=== PATIENT | female | born 1975 | race Caucasian/White ===

== ENCOUNTER 2022-07-02 15:26 | Outpatient (CLI) | payer OTHER, SELFPAY ==
--- NOTE | 2022-07-02 15:40 | CRLHL7_ITS ---
For Patients: As a result of the Century Cures Act, medical imaging exams and procedure reports are released immediately into your electronic medical record. You may view this report before your referring provider. If you have questions, please contact your health care provider. BILATERAL MAMMOGRAM WITH COMPUTER-AIDED DETECTION AND TOMOSYNTHESIS 07/02/2022 TECHNIQUE: CC and MLO views were obtained. These mammographic images have been obtained using full-field digital technique. These mammographic images were interpreted with the benefit of computer-aided detection. Breast Tomosynthesis was used in this interpretation. COMPARISON FILM: 04/24/21, 04/22/20, 02/23/19. FINDINGS: The breasts are heterogeneously dense, which may obscure small masses IMPRESSION: There is no radiographic evidence for malignancy. ASSESSMENT: BI-RADS Category 1: Negative RECOMMENDATION: Routine screening mammogram in 1 year. A lay language report of this examination will be provided to the patient. Rubio Sunshine M.D. Diagnostic Radiologist [email or web address] GENE/carline / be/Dictated by: Rubio Sunshine MD @ 07/03/2022 9:15:00 AM (Electronically Signed)
== END 2022-07-02 15:27 | disposition home or self-care (01) ==
LOC: MAMMO 15:30
PROVIDERS: PCP Physician Assistant Medical; Visit Provider Physician Assistant
DX: Z12.31 Encounter for screening mammogram for malignant neoplasm of breast (principal)
CPT/HCPCS: 77063; 77067

== ENCOUNTER 2022-09-04 08:17 | Outpatient (CLI) | payer OTHER, SELFPAY | END 2022-09-04 08:18 | disposition home or self-care (01) | PROVIDERS: PCP Physician Assistant Medical; Visit Provider Physician Assistant | DX: R23.2 Flushing (principal); N95.1 Menopausal and female climacteric states | CPT/HCPCS: 83001; 84443 ==

== ENCOUNTER 2022-09-21 10:27 | Outpatient (CLI) | payer OTHER, SELFPAY ==
--- NOTE | 2022-09-21 10:45 | CRLHL7_ITS ---
For Patients: As a result of the Century Cures Act, medical imaging exams and procedure reports are released immediately into your electronic medical record. You may view this report before your referring provider. If you have questions, please contact your health care provider. CLINICAL HISTORY: Left lower quadrant pain TECHNIQUE: 2D viera scale and color Doppler images were acquired of the pelvis using a transvaginal approach. FINDINGS: On transvaginal imaging, the myometrium has a normal uniform echotexture. The endometrial lining measures 3 mm in thickness. The left ovary measures 1.9 x 1.0 x 1.7 cm in size and the right ovary measures 2.0 x 1.1 x 1.4 cm. The ovaries demonstrate normal arterial and venous blood flow on color Doppler analysis. There are no suspicious fluid collections within the cul-de-sac. IMPRESSION: No abnormalities of the uterus or ovaries identified. Dictated by Rubio Sunshine MD @ 09/21/2022 12:29:29 PM (Electronically Signed)
== END 2022-09-21 10:28 | disposition home or self-care (01) ==
LOC: US 10:29
PROVIDERS: PCP Physician Assistant Medical; Visit Provider Emergency Medicine
DX: R10.32 Left lower quadrant pain (principal)
CPT/HCPCS: 76830

== ENCOUNTER 2023-03-26 08:43 | Outpatient (CLI) | payer OTHER, SELFPAY | END 2023-03-26 08:44 | disposition home or self-care (01) | LOC: NFLDREF 08:43 | PROVIDERS: PCP Physician Assistant Medical; Visit Provider Physician Assistant | DX: Z01.419 Encounter for gynecological examination (general) (routine) without abnormal findings (principal); Z13.6 Encounter for screening for cardiovascular disorders; Z13.1 Encounter for screening for diabetes mellitus | CPT/HCPCS: 80061; 82947 ==

== ENCOUNTER 2023-07-05 11:05 | Outpatient (CLI) | payer OTHER, SELFPAY ==
--- NOTE | 2023-07-05 11:30 | CRLHL7_ITS ---
For Patients: As a result of the Century Cures Act, medical imaging exams and procedure reports are released immediately into your electronic medical record. You may view this report before your referring provider. If you have questions, please contact your health care provider. BILATERAL SCREENING MAMMOGRAM WITH COMPUTER-AIDED DETECTION AND TOMOSYNTHESIS TECHNIQUE: CC and MLO views were obtained. These mammographic images have been obtained using full-field digital technique. These mammographic images were interpreted with the benefit of computer-aided detection. Breast Tomosynthesis was used in this interpretation. COMPARISON FILM: 07/02/22, 04/24/21, 04/22/20. FINDINGS: The breasts are heterogeneously dense, which may obscure small masses IMPRESSION: There is no radiographic evidence for malignancy. ASSESSMENT: BI-RADS Category 1: Negative RECOMMENDATION: Routine screening mammogram in 1 year. A lay language report of this examination will be provided to the patient. Rubio Sunshine M.D. Diagnostic Radiologist [email or web address] DSM/bhe be/Dictated by: Rubio Sunshine MD @ 07/05/2023 1:37:00 PM (Electronically Signed)
== END 2023-07-05 11:06 | disposition home or self-care (01) ==
LOC: MAMMO 11:06
PROVIDERS: PCP Physician Assistant Medical; Visit Provider Physician Assistant
DX: Z12.31 Encounter for screening mammogram for malignant neoplasm of breast (principal); R92.2 Inconclusive mammogram
CPT/HCPCS: 77063; 77067

== ENCOUNTER 2023-11-03 10:29 | Outpatient (CLI) | payer OTHER, SELFPAY ==
--- NOTE | 2023-11-03 10:45 | CRLHL7_ITS ---
For Patients: As a result of the Cures Act, medical imaging exams and procedure reports are released immediately into your electronic medical record. You may view this report before your referring provider. If you have questions, please contact your health care provider. DIGITAL DIAGNOSTIC RIGHT MAMMOGRAM USING TOMOSYNTHESIS AND COMPUTER-AIDED DETECTION RIGHT BREAST ULTRASOUND CLINICAL HISTORY: RIGHT breast pain. COMPARISON: 07/05/2023, 07/02/2022, 04/24/2021. TECHNIQUE: Digital RIGHT mammogram in two projections. Tomosynthesis and CAD. Real-time ultrasound imaging of RIGHT breast with imaging documentation. BREAST COMPOSITION: The breasts are heterogeneously dense, which may obscure small masses. FINDINGS: 3D CC/MLO RIGHT breast mammogram images submitted. No suspicious masses or architectural distortion. No suspicious calcifications. No adenopathy. Targeted RIGHT breast ultrasound performed in the area of concern 12 o`clock-4 o`clock 4 cm from the nipple. Normal fibroglandular tissue is present. No fibrocystic change or mass. IMPRESSION: No suspicious findings. No evidence of malignancy. RECOMMENDATIONS: Annual BILATERAL screening mammography. Results and recommendations discussed with the patient. BI-RADS Category 2: Benign A lay language report of this examination will be provided to the patient. Dictated by Rubio Sunshine MD @ 11/03/2023 12:50:44 PM nimesh/Dictated by: Rubio Sunshine MD @ 11/03/2023 12:50:00 PM (Electronically Signed)
--- NOTE | 2023-11-03 11:15 | CRLHL7_ITS ---
For Patients: As a result of the Cures Act, medical imaging exams and procedure reports are released immediately into your electronic medical record. You may view this report before your referring provider. If you have questions, please contact your health care provider. PLEASE SEE DIGITAL DIAGNOSTIC RIGHT MAMMOGRAM PERFORMED SAME DAY CRL:ana perez/Dictated by: Rubio Sunshine MD @ 11/03/2023 12:50:00 PM (Electronically Signed)
== END 2023-11-03 10:30 | disposition home or self-care (01) ==
LOC: MAMMO 10:30
PROVIDERS: PCP Physician Assistant Medical; Visit Provider Advanced Practice Midwife
DX: N64.4 Mastodynia (principal)
CPT/HCPCS: 76642; 77065; G0279

== ENCOUNTER 2024-03-28 12:33 | Outpatient (CLI) | payer OTHER, SELFPAY | END 2024-03-28 12:34 | disposition home or self-care (01) | LOC: NFLDREF 12:34 | PROVIDERS: PCP Physician Assistant Medical; Visit Provider Physician Assistant | DX: E78.5 Hyperlipidemia, unspecified (principal); Z13.1 Encounter for screening for diabetes mellitus | CPT/HCPCS: 80061; 82947 ==

== ENCOUNTER 2024-06-29 09:00 | Outpatient (CLI) | payer OTHER, SELFPAY ==
--- NOTE | 2024-06-29 09:15 | CRLHL7_ITS ---
For Patients: As a result of the Century Cures Act, medical imaging exams and procedure reports are released immediately into your electronic medical record. You may view this report before your referring provider. If you have questions, please contact your health care provider. BILATERAL SCREENING MAMMOGRAM WITH COMPUTER-AIDED DETECTION AND TOMOSYNTHESIS TECHNIQUE: CC and MLO views were obtained. These mammographic images have been obtained using full-field digital technique. These mammographic images were interpreted with the benefit of computer-aided detection. Breast Tomosynthesis was used in this interpretation. COMPARISON FILM: 07/05/23, 07/02/22, 04/24/21. FINDINGS: The breasts are heterogeneously dense, which may obscure small masses IMPRESSION: There is no radiographic evidence for malignancy. ASSESSMENT: BI-RADS Category 1: Negative RECOMMENDATION: Routine screening mammogram in 1 year. A lay language report of this examination will be provided to the patient. Rubio Sunshine M.D. Diagnostic Radiologist [email or web address] YONY/Dictated by: Rubio Sunshine MD @ 06/29/2024 12:39:00 PM (Electronically Signed)
== END 2024-06-29 09:01 | disposition home or self-care (01) ==
LOC: MAMMO 09:01
PROVIDERS: PCP Physician Assistant Medical; Visit Provider Physician Assistant
DX: Z12.31 Encounter for screening mammogram for malignant neoplasm of breast (principal); R92.2 Inconclusive mammogram
CPT/HCPCS: 77063; 77067

== ENCOUNTER 2024-09-24 13:13 | Emergency (ER) | payer OTHER, SELFPAY ==
[2024-09-24] VITALS (16 sets, daily range): BP systolic 130–183; BP diastolic 95–132; PULSE 59–75; RESP 16–18; TEMP 36–36.2; O2SAT 97–100; BMI 31.8
[2024-09-24] MEDS: KETOROLAC 15 MG/ML inj IVP (13:55)
[2024-09-24 13:57] LABS: Basophils Absolute Auto 0.03 K/uL (0.00-0.30); Basophils Percent Auto 0.4 % (0.0-3.0); Eosinophils Absolute Auto 0.07 K/uL (0.00-0.50); Eosinophils Percent Auto 0.9 % (0.0-7.0); Hematocrit 40.8 % (33.0-51.0); Hemoglobin* 13.3 gm/dL (12.0-16.0); Immature Granulocytes Abs Auto 0.01 K/uL (0.00-0.30); Immature Granulocytes Pct Auto 0.1 %; Lymphocytes Absolute Auto 2.44 K/uL (0.90-2.90); Lymphocytes Percent Auto 30.3 % (20-44); Mean Corpuscular HGB Conc 33 gm/dL (32-36); Mean Corpuscular Hemoglobin 26 pg (26-34); Mean Corpuscular Volume 80 fL (80-100); Monocytes Percent Auto 7.1 % (0.0-11.0); Neutrophils Absolute Auto 4.94 K/uL (1.7-7.0); Neutrophils Percent Auto 61.2 % (42.0-72.0); Platelet Count* 262 K/uL (140-440); RDW Coefficient of Variation % 13.3 % (11.5-15.5); Red Blood Count 5.12 m/uL (4.00-5.20); White Blood Count* 8.06 K/uL (4.50-11.00)
[2024-09-24 14:00] LABS: Slide Review Reflex No
[2024-09-24 14:13] LABS: Chloride* 104 mmol/L (96-114); Potassium* 3.6 mmol/L (3.6-5.1); Sodium* 137 mmol/L (135-149)
[2024-09-24 14:15] LABS: Creatinine* 0.7 mg/dL (0.5-1.5); Est. Creatinine Clearance* 83.95; Estimated Glomerular Filt Rate 106 ml/min
[2024-09-24 14:16] LABS: Anion Gap 8 mEq/L (7-15); Blood Urea Nitrogen* 14 mg/dL (5-24); Carbon Dioxide* 25 mmol/L (20-32); Glucose* 95 mg/dL (60-115)
[2024-09-24 14:17] LABS: Calcium* 9.2 mg/dL (8.4-10.6)
[2024-09-24 14:19] LABS: C Reactive Protein* 0.9 mg/dL (0.5-1.0)
[2024-09-24 14:22] LABS: D Dimer Quantitative* 0.37 ug/ml (0.00-0.50)
--- NOTE | 2024-09-24 14:29 | CRLHL7_ITS ---
For Patients: As a result of the Cures Act, medical imaging exams and procedure reports are released immediately into your electronic medical record. You may view this report before your referring provider. If you have questions, please contact your health care provider. INDICATION: Left lateral chest pain TECHNIQUE: Chest radiograph 2 views COMPARISON: 08/31/2023 FINDINGS: Mediastinum: The mediastinum is normal in appearance. The cardiac silhouette is at upper limits of normal in size. Lung: Both lungs are unremarkable in appearance. No sign of pleural effusion seen. No pneumothorax is identified. Bone and Soft tissue: Unremarkable for age. IMPRESSION: 1. No acute cardiopulmonary disease is seen. Dictated by Juan José Jacome MD @ 09/24/2024 2:49:20 PM Dictated by: Juan José Jacome MD @ 09/24/2024 14:49:21 (Electronically Signed)
--- NOTE | 2024-09-24 14:29 | ED_ITS ---
HPI - General Adult General Date Seen: 09/24/24 Chief complaint: Chest Pain Stated complaint: L side chest pain Time Seen by Provider: 09/24/24 13:31 Source: patient, RN notes reviewed and old records reviewed Mode of arrival: ambulatory Limitations: no limitations History of Present Illness HPI narrative: Patient is a pleasant 48-year-old woman, generally pretty healthy here for evaluation of left lateral chest pain which she says started around 1045 this morning while she was driving. She describes a sharp, squeezing type pain which is localized underneath her left armpit. She says the 1st time it happened just was half a 2nd, but it has lasted as long as 30 seconds to a minute. It is happening 10-15 times an hour since then. Not associated with shortness of breath, she notes that the pain is pleuritic when it is there but when it is not present she has no pleuritic pain. She has not had any fever, cough, lower extremity swelling or pain, recent travel or immobility. She is on hormone replacement therapy due to menopausal status. She has no history of DVT or PE, no cardiac history. She does not smoke. Here today with her . Was seen in urgent care and reports that she had an EKG there and they said it looked normal, but did not have any other testing. They recommended that she come to the ER. Related Data Previous Rx's ?Medication ?Instructions ?Recorded citalopram 40 mg tablet See Rx Instructions .Route 03/28/24 .COMPLEX #90 tabs estradiol 0.0375 mg/24 hr 1 patch transdermal 2XW #24 ea 03/28/24 semiweekly transdermal patch progesterone micronized 100 mg 100 mg PO DAILY #90 caps 03/28/24 capsule Allergies Allergy/AdvReac Type Severity Reaction Status Date / Time No Known Drug Allergies Allergy Verified 04/20/24 15:17 Review of Systems Status of ROS: Reports: 10 or more systems reviewed and unremarkable except as noted in History and below [facility] Medical History Community acquired pneumonia ?J18.9 - Pneumonia, unspecified organism (ICD-10) History of tobacco use (12/25/10) ?Z87.891 - Personal history of nicotine dependence (ICD-10) Cyst of paranasal sinus ?J34.1 - Cyst and mucocele of nose and nasal sinus (ICD-10) Depression with anxiety ?F41.8 - Other specified anxiety disorders (ICD-10) Surgical History History of foot surgery ?Z98.890 - Other specified postprocedural states (ICD-10) History of sinus surgery ?Z98.890 - Other specified postprocedural states (ICD-10) History of endometrial ablation ?Z98.890 - Other specified postprocedural states (ICD-10) Family History Paternal Grandmother Stroke Son Depression Maternal Grandfather Alcohol dependence Father Parkinsons Sister Multiple sclerosis Social History Narrative: Retired, , nonsmoker. Rare alcohol use. Problems where you live: no known problems In the past 12 months, utilities in danger of being shut off: no In past 12 months, lack of transportation kept you from medical appts, meetings, work, or getting things needed for daily living: no In the past 12 mos, have been you worried that your food would run out before you had money to buy more?: never true In the past 12 mos, the food you bought just didn't last and you didn't have money to buy more?: never true Smoking Status: Former smoker How often do you have a drink containing alcohol: 2-3 times a week AUDIT-C Alcohol total score: 3 Non-prescribed substance use: denies use How often does anyone, including family, friends and others, physically hurt you : never How often does anyone, including family, friends and others, insult or talk down to you: never How often does anyone, including family, friends and others, threaten you with harm: never How often does anyone, including family, friends and others, scream or curse at you: never Little interest or pleasure in doing things: not at all Feeling down, depressed, or hopeless: not at all Exam Narrative: Exam Narrative: Vital signs as noted above. In general, an alert, well-appearing patient. Head: Normocephalic, atraumatic. Eyes: Pupils are equal reactive. Extraocular movements are full. Conjunctivae are normal. ENT: Mucous membranes are moist. Throat is normal. Neck: Supple without lymphadenopathy. Heart: Regular rate and rhythm. No murmur or rub. Lungs: Clear bilaterally. No increased work of breathing, crackles or wheezes. Chest wall is normal without rash or erythema. Abdomen: Soft and nontender. No organomegaly. Extremities: Well perfused. No edema. No calf tenderness. Pulses intact. Neurologic: Patient is alert and oriented to person and place. Speech is fluent. Face is symmetric. Moves all extremities equally. Affect: Normal. Skin: Warm and dry. Well perfused. Const: Vital Signs, click to edit/add: Vital Signs - 24 hr 09/24/24 13:16 09/24/24 13:32 09/24/24 13:34 Temperature 97.1 F L Pulse Rate 64 75 Pulse Rate [Pulse Oximeter] 75 Respiratory Rate 16 Blood Pressure 151/104 H Blood Pressure [Ri ght Upper Arm] 183/132 H Pulse Oximetry 97 99 [facility] 09/24/24 13:41 09/24/24 13:41 09/24/24 13:45 Temperature Pulse Rate 63 71 Pulse Rate [Pulse Oximeter] Respiratory Rate Blood Pressure 159/106 H Blood Pressure [Ri ght Upper Arm] Pulse Oximetry 100 99 97 Oxygen Delivery Me thod 09/24/24 14:00 09/24/24 14:02 09/24/24 14:03 Temperature Pulse Rate 60 60 64 Pulse Rate [Pulse Oximeter] Respiratory Rate Blood Pressure Blood Pressure [Ri ght Upper Arm] Pulse Oximetry 98 98 98 Oxygen Delivery Ak thod 09/24/24 14:15 09/24/24 14:18 09/24/24 14:19 Temperature Pulse Rate 63 64 62 Pulse Rate [Pulse Oximeter] Respiratory Rate Blood Pressure 146/95 H Blood Pressure [Ri ght Upper Arm] Pulse Oximetry 97 98 99 Oxygen Delivery Me thod 09/24/24 14:21 09/24/24 14:30 09/24/24 14:41 Temperature Pulse Rate 63 60 59 L Pulse Rate [Pulse Oximeter] Respiratory Rate Blood Pressure 130/99 H 143/96 H Blood Pressure [Ri ght Upper Arm] Pulse Oximetry 98 99 99 Oxygen Delivery Ak thod 09/24/24 14:45 09/24/24 16:20 Temperature 96.8 F L Pulse Rate 60 62 Pulse Rate [Pulse Oximeter] Respiratory Rate 18 Blood Pressure 154/97 H Blood Pressure [Ri ght Upper Arm] Pulse Oximetry 98 99 Oxygen Delivery Me thod Course Course ED Course: Patient presents with atypical chest pain, overall my suspicion for acute coronary syndrome is quite low, symptoms are atypical, she is relatively young without identified risk factors. EKG done here shows a normal sinus rhythm, ventricular rate of 62. T-waves are somewhat flattened throughout, no acute ST segment changes. A troponin is 0, will repeat a 2nd troponin to be thorough, but I do not think this represents acute coronary syndrome. I did check a D- dimer, this was normal at 0.37. Other labs showed normal white blood cell count and hemoglobin, metabolic panel is within normal limits and CRP is 0.9. I do not see any evidence of rash now but I did talk to her about possible shingles. Symptoms could be muscular/chest wall as well. Will do a chest x-ray given the normal D-dimer to rule out pneumothorax, pleural effusion or other surprises. Otherwise, I would recommend a trial of anti inflammatories, primary care follow-up. Discussed with patient, she is comfortable with discharge. Will do a 2 hour troponin and if negative I think it is reasonable let her go home. She feels im proved after Toradol, I would recommend a trial of ibuprofen, 3 times daily with food for a few days. Discussed that etiology of her symptoms is unclear at this time, but there is no evidence of an acute life-threatening process. Repeat trop 0. Vital Signs Vital signs: Initial Vital Signs Temperature 97.1 F L 09/24/24 13:16 Temperature Source Temporal Artery Scan 09/24/24 13:16 Pulse Rate 75 09/24/24 13:16 Respiratory Rate 16 09/24/24 13:16 Blood Pressure 183/132 H 09/24/24 13:16 Blood Pressure Mean 149 H 09/24/24 13:16 Blood Pressure Position Sitting 09/24/24 13:16 Pulse Oximetry 97 09/24/24 13:16 Oxygen Delivery Method Room Air 09/24/24 13:16 Vital Signs Temperature 97.1 F L 09/24/24 13:16 Pulse Rate 75 09/24/24 13:16 Respiratory Rate 16 09/24/24 13:16 Blood Pressure 183/132 H 09/24/24 13:16 Pulse Oximetry 97 09/24/24 13:16 Oxygen Delivery Method Room Air 09/24/24 13:16 Temperature 96.8 F L 09/24/24 16:20 Pulse Rate 62 09/24/24 16:20 Respiratory Rate 18 09/24/24 16:20 Blood Pressure 154/97 H 09/24/24 16:20 Pulse Oximetry 99 09/24/24 16:20 Oxygen Delivery Method Room Air 09/24/24 13:16 Medications Administered Medications: Discontinued Medications Generic Name Dose Route Start Last Admin Trade Name Jeffreyq PRN Reason Stop Dose Admin Ketorolac Tromethamine 15 mg 09/24/24 13:41 09/24/24 13:55 Ketorolac 15 Mg/Ml Inj IVP 09/24/24 13:42 15 mg ONCE ONE Administration Medical Decision Making Lab Data Labs: Lab Results 09/24/24 09/24/24 09/24/24 Range/Units 13:25 13:41 15:40 WBC 8.06 (4.50-11.00) K/uL RBC 5.12 (4.00-5.20) m/uL Hgb 13.3 (12.0-16.0) gm/dL Hct 40.8 (33.0-51.0) % MCV 80 (80-100) fL MCH 26 (26-34) pg MCHC 33 (32-36) gm/dL RDW Coeff of Agnieszka 13.3 (11.5-15.5) % Plt Count 262 (140-440) K/uL Neut % (Auto) 61.2 (42.0-72.0) % Lymph % (Auto) 30.3 (20-44) % Duval % (Auto) 7.1 (0.0-11.0) % Eos % (Auto) 0.9 (0.0-7.0) % Baso % (Auto) 0.4 (0.0-3.0) % Neut # (Auto) 4.94 (1.7-7.0) K/uL Lymph # (Auto) 2.44 (0.90-2.90) K/uL Duval # (Auto) 0.60 (0.00-0.90) K/UL Eos # (Auto) 0.07 (0.00-0.50) K/uL Baso # (Auto) 0.03 (0.00-0.30) K/uL Abs Immat Gran (auto) 0.01 (0.00-0.30) K/uL Imm/Tot Granulo (auto) 0.1 % D-Dimer Quant (PE/DVT) 0.37 (0.00-0.50) ug/ml Sodium 137 (135-149) mmol/L Potassium 3.6 (3.6-5.1) mmol/L Chloride 104 (96-114) mmol/L Carbon Dioxide 25 (20-32) mmol/L Anion Gap 8 (7-15) mEq/L BUN 14 (5-24) mg/dL Creatinine 0.7 (0.5-1.5) mg/dL Estimated Creat Clear 83.95 Estimated GFR 106 ml/min Glucose 95 (60-115) mg/dL Calcium 9.2 (8.4-10.6) mg/dL C-Reactive Protein 0.9 (0.5-1.0) mg/dL POC Troponin I 0.00 L 0.00 L (0.01-0.04) ng/ml Discharge Plan Discharge Clinical Impression: Atypical chest pain Patient Disposition: Home, Self-Care Condition: Improved Instructions: Chest Pain (DC) Additional Instructions: I would recommend a trial of ibuprofen, 400 mg 3 times daily with food for few days. If any time you have severe uncontrolled pain, new symptoms such as fever, shortness of breath, fainting etcetera return for re-evaluation. Otherwise, primary care follow-up in the next week for recheck. Prescriptions: No Action estradiol 0.0375 mg/24 hr patch semiweekly 1 patch transdermal 2XW Qty: 24 3RF Rx Instructions: APPLY TWICE WEEKLY progesterone micronized 100 mg capsule 100 mg PO DAILY Qty: 90 3RF citalopram 40 mg tablet See Rx Instructions .ROUTE .COMPLEX Qty: 90 3RF Dose Instruction: TAKE 1 TABLET BY MOUTH ONCE DAILY Rx Instructions: TAKE 1 TABLET BY MOUTH ONCE DAILY Follow Up/Referrals: Michelle Becker PA-C [Primary Care Provider] - Stand Alone Forms: MyHealth Info Instructions
== END 2024-09-24 16:20 | disposition home or self-care (01) ==
PROVIDERS: Emergency Provider Emergency Medicine; PCP Physician Assistant Medical
DX: R07.9 Chest pain, unspecified (principal)
CPT/HCPCS: 36415; 71046; 80048; 84484; 85025; 85379; 86140; 93005; 94761; 96374; 99284; J1885

== ENCOUNTER 2024-10-10 10:40 | Outpatient (CLI) | payer OTHER, SELFPAY ==
[2024-10-10 11:17] VITALS: BP 130/82; PULSE 94; RESP 16
--- NOTE | 2024-10-10 11:27 | W.PM.STED ---
Stress Test Note Date Date Seen: 10/10/24 Date of test: 10/10/24 Providers Primary care provider: Michelle Becker Stress test physician: Himanshu Miller Stress Test Note Stress test ordered: Exercise Stress Test Indication for test: Chest pain Stress test medicine: None Results discussion: Patient is a very nice 48-year-old female presents for the above test, after discussion the risks benefits and possible side effects including non diagnosis are discussed with her she would like to proceed. Pretest EKG shows normal sinus rhythm with a ventricular rate of 63 and a blood pressure 122/88. Standard Edgar protocol is employed over a time course of 10 minutes 23 seconds, she achieved a metabolic equivalent of 12.1 Mets with a maximum heart rate of 165 which is 113% of the maximum. Maximum blood pressure was 170/92. During this test there is some very mild ST wave changes nondiagnostic of ischemia noted. She had no noted anginal equivalent symptoms. And recovered normally. Conditioning was felt to be excellent. Impression: Negative electrographic portion of stress test. Follow up suggested: Patient will be discharged from this facility, report will be generated for primary care physician. Who ordered test, clinical correlation will be needed, if further testing is needed I suggest a stress echo.
== END 2024-10-10 11:18 | disposition home or self-care (01) ==
LOC: STRESS 10:41
PROVIDERS: PCP Physician Assistant Medical; Visit Provider Physician Assistant Medical
DX: R07.9 Chest pain, unspecified (principal)
CPT/HCPCS: 93016; 93017

== ENCOUNTER 2025-01-15 08:27 | Outpatient (CLI) | payer OTHER, SELFPAY ==
--- NOTE | 2025-01-15 09:26 | P.ANES_ITS ---
Anesthesia Charges Start Date/Time Anesthesia Start Date: 01/15/25 Anesthesia Start Time: 08:55 Stop Date/Time Anesthesia Stop Date: 01/15/25 Anesthesia Stop Time: 09:21 Coding CPT Codes CPT Codes: JOSE LWR INTST NDSC NOS - [id number] ([id number]) P2 - PATIENT W/MILD SYST DISEASE, QK - DIRECTOR PATIENT FINANCIAL SERVICES 2-4 CNCRNT ANES PROC, QX - SCALE INSTALLER SVC W/ MD MED DIRECTION
--- NOTE | 2025-01-15 09:26 | W.ANESCHARGE ---
Anesthesia Charges Start Date/Time Anesthesia Start Date: 01/15/25 Anesthesia Start Time: 08:55 Stop Date/Time Anesthesia Stop Date: 01/15/25 Anesthesia Stop Time: 09:21 Coding CPT Codes CPT Codes: JOSE LWR INTST NDSC NOS - [id number] ([id number]) P2 - PATIENT W/MILD SYST DISEASE, QK - CAP CUTTER 2-4 CNCRNT ANES PROC, QX - ELECTRONIC EQUIPMENT SET UP OPERATOR SVC W/ MD MED DIRECTION
--- NOTE | 2025-01-15 09:28 | P.ANES_ITS ---
Anesthesia Charges Start Date/Time Anesthesia Start Date: 01/15/25 Anesthesia Start Time: 08:55 Stop Date/Time Anesthesia Stop Date: 01/15/25 Anesthesia Stop Time: 09:21 Coding CPT Codes CPT Codes: JOSE LWR INTST NDSC NOS - [id number] ([id number]) QK - [employer] FR[employer]OP FARMER 2-4 CNCRNT JOSE PROC, QX - ENGLISH TUTOR SVC W/ MD MED DIRECTION, P2 - PATIENT W/MILD SYST DISEASE
--- NOTE | 2025-01-15 09:28 | W.ANESCHARGE ---
Anesthesia Charges Start Date/Time Anesthesia Start Date: 01/15/25 Anesthesia Start Time: 08:55 Stop Date/Time Anesthesia Stop Date: 01/15/25 Anesthesia Stop Time: 09:21 Coding CPT Codes CPT Codes: JOSE LWR INTST NDSC NOS - [id number] ([id number]) QK - ANALYSIS ENGINEER 2-4 CNCRNT JOSE PROC, QX - BUSINESS DEAN SVC W/ MD MED DIRECTION, P2 - PATIENT W/MILD SYST DISEASE
== END 2025-01-15 08:28 | disposition home or self-care (01) ==
LOC: OP CLINIC 08:28
PROVIDERS: PCP Physician Assistant Medical; Visit Provider Internal Medicine
DX: Z12.11 Encounter for screening for malignant neoplasm of colon (principal); K57.30 Diverticulosis of large intestine without perforation or abscess without bleeding; D12.8 Benign neoplasm of rectum; K64.8 Other hemorrhoids
CPT/HCPCS: 00811; 00812; 45380; 88305; J2704

== ENCOUNTER 2025-03-29 10:00 | Outpatient (CLI) | payer OTHER, SELFPAY | END 2025-03-29 10:01 | disposition home or self-care (01) | LOC: NFLDREF 10:01 | PROVIDERS: PCP Physician Assistant Medical; Visit Provider Physician Assistant | DX: Z00.01 Encounter for general adult medical examination with abnormal findings (principal); E78.5 Hyperlipidemia, unspecified; F41.8 Other specified anxiety disorders; Z13.1 Encounter for screening for diabetes mellitus | CPT/HCPCS: 80061; 82947; 84443 ==

== ENCOUNTER 2025-07-04 13:45 | Outpatient (CLI) | payer OTHER, SELFPAY ==
--- NOTE | 2025-07-04 14:00 | CRLHL7_ITS ---
For Patients: As a result of the Century Cures Act, medical imaging exams and procedure reports are released immediately into your electronic medical record. You may view this report before your referring provider. If you have questions, please contact your health care provider. INDICATION: BILATERAL SCREENING MAMMOGRAM, ASYMPTOMATIC 49 Y/O FEMALE COMPARISON: 06/29/2024, 07/05/2023, 11/03/2023 TECHNIQUE: Digital mammogram in CC and MLO projections including computer-aided detection (CAD) and tomosynthesis. BREAST COMPOSITION: The breasts are heterogeneously dense, which may obscure small masses. FINDINGS: No suspicious findings. ASSESSMENT: BI-RADS 1 Negative RECOMMENDATION: Annual screening mammogram. A lay language report of this examination will be provided to the patient. Dictated by: Rubio Sunshine MD @ 07/05/2025 08:34:36 (Electronically Signed)
== END 2025-07-04 13:46 | disposition home or self-care (01) ==
LOC: MAMMO 13:46
PROVIDERS: PCP Physician Assistant Medical; Visit Provider Physician Assistant
DX: Z12.31 Encounter for screening mammogram for malignant neoplasm of breast (principal); R92.333 Mammographic heterogeneous density, bilateral breasts
CPT/HCPCS: 77063; 77067